=== PATIENT | female | born 1995 | race African-American/Black ===

== ENCOUNTER 2019-03-19 06:02 | Inpatient (IN) ==
[2019-03-19] MEDS ORDERED: ONDANSETRON 4 MG/2 ML VIAL IV PRN ×2 (06:17→17:52)
[2019-03-19] MEDS ORDERED: MEPERIDINE 50 MG/1 ML VIAL IV PRN (06:17)
[2019-03-19] MEDS ORDERED: OXYTOCIN/LR 20 UNIT/1,000 ML BAG IV SCH (06:30)
[2019-03-19 06:39] LABS: Basophils % 0.3 % (0.0-0.8); Eosinophils # 0.1 10*3/uL (0.0-0.87); Hematocrit 29.6 VOL% (35.7-47.0); Hemoglobin 8.8 GM/DL (12.0-16.0); Immature Granulocytes % 0.7 %; Immature Granulocytes Absolute 0.07 #; Lymphocytes # 3.6 10*3/uL (1.4-4.0); Lymphocytes % 35.5 % (21.3-54.2); Mean Corpuscular HGB Conc 29.7 GM/DL (32-36); Mean Platelet Volume 9.9 FL (9.6-12.0); Monocytes % 4.9 % (1.7-12.7); Neutrophils % 57.6 % (38.7-73.9); Platelet Count 313 T/CUMM (130-400); Red Blood Count 3.61 MC/CUMM (3.8-5.5); Red Cell Distribution Width 16.5 % (9.3-17.3); White Blood Count 10.1 T/CUMM (4-12)
[2019-03-19] MEDS: LACTATED RINGERS 1,000 ML IV SCH ×3 (06:50→16:45)
[2019-03-19 06:58] LABS: Albumin 2.6 G/DL (3.4-5.0); Calcium 8.7 MG/DL (8.5-10.1); Osmolality,Calculated 277.4 MOS/KG (273-304); Total Protein 7.6 G/DL (6.4-8.3)
[2019-03-19] MEDS ORDERED: ALUMINUM/MAGNES/SIMETH MAX STR 30 ML UDCUP PO PRN (07:24)
[2019-03-19] MEDS ORDERED: hydrOXYzine HCL 25 MG/1 ML VIAL IM PRN (08:52)
[2019-03-19] MEDS ORDERED: CITRIC ACID/SODIUM CITRATE 30 ML UDCUP PO ONE (08:52)
[2019-03-19] MEDS ORDERED: FAMOTIDINE 20 MG/2 ML VIAL IV ONE (08:52)
[2019-03-19] MEDS ORDERED: PROMETHAZINE 25 MG/1 ML VIAL IM PRN (08:52)
[2019-03-19] MEDS ORDERED: NALOXONE 0.4 MG/ML VIAL IV PRN (08:52)
[2019-03-19] MEDS ORDERED: ePHEDrine 50 MG/ML AMP IV PRN (08:52)
[2019-03-19] MEDS ORDERED: diphenhydrAMINE 50 MG/1 ML VIAL IV PRN (08:52)
[2019-03-19] MEDS: fentaNYL 2 MCG/ROPIV 0.2% EPID 100 ML EPIDURAL SCH ×2 (10:37→17:10)
[2019-03-19 11:49] LABS: Apearance,Urine CLEAR (Clear); Bacteria,Urine Occasional /HPF (Few); Bilirubin,Urine Negative (Negative); Blood, Urine Negative (Negative); Glucose,Urine (UA) Negative (Negative); Ketones,Urine Negative (Negative); Mucus,Urine Occasional /LPF (Occasional); Nitrite,Urine Negative (Negative); Protein,Urine Negative; RBC,Urine 3 /HPF (0-4); Squamous Epithelial Cell,Urine Occasional /HPF (0-10); Urine Color Yellow (Yellow); Urine Specific Gravity 1.012 (1.001-1.035); Urine Urobilinogen < 2.0 EU/DL (0.2-1.0); WBC,Urine 9 /HPF (0-6)
[2019-03-19] MEDS ORDERED: ACETAMINOPHEN 500 MG TABLET PO ONE (11:59)
[2019-03-19] MEDS ORDERED: miSOPROStol 200 MCG TABLET ONE (17:12)
[2019-03-19] MEDS ORDERED: CARBOPROST TROMETHAMINE 250 MCG/ML AMP IM ONE (17:13)
[2019-03-19] MEDS ORDERED: METHYLERGONOVINE 0.2 MG/1 ML AMP ONE (17:13)
[2019-03-19] MEDS ORDERED: OXYTOCIN/LR 30 UNIT/1,000 ML BAG IV ONE (17:25)
[2019-03-19] MEDS ORDERED: BENZOCAINE 20%/MENTHOL 0.5% SPRAY 56 GM CAN TOP PRN (17:52)
[2019-03-19] MEDS ORDERED: oxyCODONE/ACETAMINOPHEN 5-325 MG TABLET PO PRN (17:52)
[2019-03-19] MEDS ORDERED: MEASLES/MUMPS/RUBELLA VACCINE 0.5 ML VIAL SUBCUT ONE (17:52)
[2019-03-19] MEDS ORDERED: LANOLIN 50% CREAM 0.3 OZ TUBE TOP PRN (17:52)
[2019-03-19] MEDS ORDERED: ACETAMINOPHEN 325 MG TABLET PO PRN (17:52)
[2019-03-19] MEDS ORDERED: HYDROCORTISONE 2.5% RECTAL CREAM 30 GM TUBE TOP PRN (17:52)
[2019-03-19] MEDS ORDERED: WITCH HAZEL PADS 100/JAR TOP PRN (17:52)
[2019-03-19] MEDS ORDERED: DIPH/TET/ACEL PERT BOOSTER VACCINE 0.5 ML VIAL IM ONE (17:52)
[2019-03-19] MEDS ORDERED: BISACODYL 10 MG SUPP RECTAL PRN (17:52)
[2019-03-19] MEDS ORDERED: OXYTOCIN/LR 20 UNIT/1,000 ML BAG IV ONE (17:52)
[2019-03-19] MEDS ORDERED: RHO(D) IMMUNE GLOBULIN 300 MCG SYRINGE IM ONE (17:52)
[2019-03-19] MEDS ORDERED: fentaNYL 100 MCG/2 ML VIAL ONE (18:13)
[2019-03-19 18:21] LABS: Cord Venous Blood HCO3 21.1 MMOL/L; Cord Venous Blood PCO2 39.5 MMHG; Cord Venous Blood PO2 35.2
[2019-03-19 18:24] LABS: Cord Arterial Blood HCO3 22.6 MMOL/L
[2019-03-19] MEDS: IBUPROFEN 800 MG TABLET PO PRN (19:39)
[2019-03-19] MEDS: DOCUSATE SODIUM 100 MG CAPSULE PO SCH (21:35)
[2019-03-19] MEDS: oxyCODONE/ACETAMINOPHEN 5-325 MG TABLET PO PRN (21:35)
[2019-03-19] MEDS ORDERED: diphenhydrAMINE CAP 25 MG CAPSULE PO PRN (22:00)
[2019-03-19] MEDS: guaiFENesin 200 MG/10 ML UDCUP PO PRN (23:28)
[2019-03-20] MEDS: IBUPROFEN 800 MG TABLET PO PRN ×3 (01:46→16:29)
[2019-03-20] MEDS: guaiFENesin 200 MG/10 ML UDCUP PO PRN ×2 (04:37→20:26)
[2019-03-20 04:58] LABS: Basophils % 0.2 % (0.0-0.8); Eosinophils # 0.1 10*3/uL (0.0-0.87); Eosinophils % 0.8 % (0.00-10.9); Hematocrit 24.5 VOL% (35.7-47.0); Hemoglobin 7.6 GM/DL (12.0-16.0); Immature Granulocytes % 0.6 %; Immature Granulocytes Absolute 0.07 #; Lymphocytes # 3.9 10*3/uL (1.4-4.0); Lymphocytes % 30.8 % (21.3-54.2); Mean Corpuscular Volume 80.3 FL (87-102); Mean Platelet Volume 10.7 FL (9.6-12.0); Monocytes % 4.9 % (1.7-12.7); Neutrophils % 62.7 % (38.7-73.9); Platelet Count 258 T/CUMM (130-400); Red Blood Count 3.05 MC/CUMM (3.8-5.5); White Blood Count 12.6 T/CUMM (4-12)
[2019-03-20] MEDS: DOCUSATE SODIUM 100 MG CAPSULE PO SCH ×2 (09:17→20:25)
[2019-03-20] MEDS: FERROUS SULFATE 325 MG TABLET PO SCH ×3 (09:17→20:25)
[2019-03-20] MEDS: oxyCODONE/ACETAMINOPHEN 5-325 MG TABLET PO PRN ×3 (10:10→22:13)
[2019-03-20] MEDS: FLUTICASONE 50 MCG NASAL SPRAY 16 GM BOTTLE BOTH NARES SCH ×2 (13:30→20:25)
[2019-03-20] MEDS ORDERED: SODIUM CHLORIDE 0.9% 1,000 ML IV PRN (13:46)
[2019-03-20 22:53] LABS: Hematocrit 30.5 VOL% (35.7-47.0)
[2019-03-20 22:54] LABS: Hemoglobin 9.4 GM/DL (12.0-16.0)
[2019-03-21] MEDS: IBUPROFEN 800 MG TABLET PO PRN ×2 (01:58→07:44)
[2019-03-21] MEDS: oxyCODONE/ACETAMINOPHEN 5-325 MG TABLET PO PRN (04:03)
[2019-03-21 05:17] LABS: Hematocrit 28.1 VOL% (35.7-47.0); Hemoglobin 8.9 GM/DL (12.0-16.0)
[2019-03-21 07:28] VITALS: BP 114/65
[2019-03-21] MEDS: FERROUS SULFATE 325 MG TABLET PO SCH (07:45)
[2019-03-21] MEDS: DOCUSATE SODIUM 100 MG CAPSULE PO SCH (07:45)
== END 2019-03-21 13:15 | disposition home or self-care (01) | DRG 560 ==
LOC: N.LDOUT 06:02 → N.LD 06:05 → N.OB 21:15
PROVIDERS: ADMIT Obstetrics & Gynecology; ATTEND Obstetrics & Gynecology